=== PATIENT | female | born 1980 | race Caucasian/White ===

== ENCOUNTER 2017-04-28 17:50 | Emergency (ER) | payer SELFPAY ==
[2017-04-28 18:13] VITALS: BP 113/75
[2017-04-28] MEDS ORDERED: Acetaminophen TAB* 325 MG PO ONE (18:16)
--- NOTE | 2017-04-28 18:16 | UC ---
Throat Pain/Nasal Tiburcio HPI - HPI Summary HPI Summary: 36 year old female presents with complains sore throat and post nasal drip. - History of Current Complaint Chief Complaint: UCRespiratory Stated Complaint: ST Time Seen by Provider: 04/28/17 18:16 Hx Obtained From: Patient Hx Last Menstrual Period: 04/17/17 Onset/Duration: Sudden Onset Severity: Moderate Pain Scale Used: 0-10 Numeric - 5 Cough: Nonproductive Associated Signs & Symptoms: Positive: Dysphagia, Sinus Discomfort, Nasal Discharge - Allergies/Home Medications Allergies/Adverse Reactions: Allergies Allergy/AdvReac Type Severity Reaction Status Date / Time blueberries Allergy Anaphylatic Uncoded 04/28/17 18:12 Shock Home Medications: Home Medications Epinephrine [Epipen 2-Loco] 0.3 mg IM ONCE 04/28/17 [History Confirmed 04/28/17] Ibuprofen TAB* [Motrin TAB* 400 MG] 400 mg PO Q6H PRN 04/28/17 [History Confirmed 04/28/17] Melatonin 10 mg PO BEDTIME 04/28/17 [History Confirmed 04/28/17] PMH/Surg Hx/FS Hx/Imm Hx Previously Healthy: Yes - Surgical History Surgical History: Yes Surgery Procedure, Year, and Place: x 3. tubal ligation - Family History Known Family History: Positive: None - Social History Alcohol Use: Rare Substance Use Type: None Smoking Status (MU): Current Some Day Smoker Type: Cigarettes Amount Used/How Often: few per week Review of Systems Constitutional: Negative Skin: Negative Eyes: Negative ENT: Sore Throat, Nasal Discharge, Sinus Congestion, Sinus Pain/Tenderness Respiratory: Negative Cardiovascular: Negative Gastrointestinal: Negative Genitourinary: Negative Motor: Negative Neurovascular: Negative Musculoskeletal: Negative Neurological: Negative Psychological: Negative All Other Systems Reviewed And Are Negative: Yes Physical Exam Triage Information Reviewed: Yes Vital Signs: Initial Vital Signs Temp 38.4 C 04/28/17 18:09 Pulse 104 04/28/17 18:09 Resp 18 04/28/17 18:09 BP 113/75 04/28/17 18:09 Pulse Ox 97 04/28/17 18:09 Vital Signs Reviewed: Yes Eye Exam: Normal ENT: Positive: Pharyngeal erythema, Nasal congestion, Nasal drainage Dental Exam: Normal Neck exam: Normal Neck: Positive: 1 Respiratory Exam: Normal Cardiovascular Exam: Normal Abdominal Exam: Normal Musculoskeletal Exam: Normal Neurological Exam: Normal Psychological Exam: Normal Skin Exam: Normal Throat Pain/Nasal Course/Dx - Differential Dx/Diagnosis Provider Diagnoses: sinusitis Discharge - Discharge Plan Condition: Stable Disposition: HOME Prescriptions: Albuterol HFA INHALER* [Ventolin HFA Inhaler*] 1 puff INH Q6H PRN #1 mdi PRN Reason: Wheezing Azithromyxin LOCO (NF) [Z-Loco (Zithromax) 250 mg tabs #6] 2 tab PO .TODAY, THEN 1 DAILY #6 tab Guaifenesin-Codeine [Cheratussin AC] 1 teasp PO Q8H PRN #120 ml MDD 15 ml PRN Reason: Cough LoraTADine TAB(NF) [Claritin 10 MG TAB(NF)] 10 mg PO DAILY #30 tab Patient Education Materials: Pharyngitis (ED) Referrals: No Primary Care Phys,NOPCP [Primary Care Provider] -
== END 2017-04-28 19:00 | disposition home or self-care (01) ==
LOC: UCCORT 17:50
DX: J32.9 Chronic sinusitis, unspecified (principal)
CPT/HCPCS: 87651; 99202; A9270-GY; G0463